=== PATIENT | male | born 1965 | race American Indian/Alaskan Native ===

== ENCOUNTER 2017-11-25 01:47 | Emergency (ER) | payer SELFPAY ==
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
[2017-11-25 07:17] LABS: Hematocrit 42.7 % (35.5-45.6); Hemoglobin 14.7 gm/dl (11.8-15.2); Mean Corpuscular HGB Conc 34 % (32-34); Mean Corpuscular Hemoglobin 33 pg (28-32); Mean Corpuscular Volume 97 fl (84-94); Platelet Count 232 K/mm3 (140-440); Red Blood Count 4.43 M/mm3 (3.65-5.03); Red Cell Distribution Width 13.8 % (13.2-15.2)
[2017-11-25 07:35] LABS: Albumin 3.8 g/dL (3.9-5); Calcium 9.3 mg/dL (8.4-10.2)
[2017-11-25 09:48] VITALS: BP 132/84
[2017-11-25] MEDS ORDERED: MOTRIN PO ONE (10:11)
[2017-11-25] MEDS ORDERED: NORCO 10/325 PO ONE (10:11)
[2017-11-25] MEDS ORDERED: ZOFRAN ODT PO ONE (10:12)
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
[2017-11-25] MEDS ORDERED: NACL 0.9% 1000 ML 1,000 ML IV ONE (10:42)
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
== END 2017-11-25 15:35 | disposition home or self-care (01) ==
LOC: ED 01:47
DX: R07.89 Other chest pain (principal); R51 Headache; N18.1 Chronic kidney disease, stage 1; K58.9 Irritable bowel syndrome, unspecified; F17.200 Nicotine dependence, unspecified, uncomplicated; Z90.49 Acquired absence of other specified parts of digestive tract; V59.9XXA Occupant (driver) (passenger) of pick-up truck or van injured in unspecified traffic accident, initial encounter; Y93.89 Activity, other specified; Y99.8 Other external cause status; Y92.488 Other paved roadways as the place of occurrence of the external cause
CPT/HCPCS: 36415; 70450; 72125; 80053; 82550; 84484; 85027; 85379; 93005; 93010; J7030; Q0162